=== PATIENT | female | born 1955 | race Caucasian/White ===

== ENCOUNTER → 2016-05-22 | Outpatient (CLI) | payer BC, OTHER ==
--- NOTE | 2016-05-22 09:04 | MA ---
Screening Digital Mammogram With Tomosynthesis and iCAD Indication: Routine screening. Personal history of right breast ductal carcinoma in situ. Technique: Standard digital CC projections were obtained. Digital breast tomosynthesis was performed in the MLO projection with reconstruction at 1.0 mm slice thickness. Composite MLO views were recons tructed. This examination was processed by the iCAD computer-aided detection system. Comparison: July 2015, May 2015, and April 2015 Breast density: Type B. Findings: CAD was reviewed. Four radiopaque markers are present in the outer right breast. Right anna st has asymmetric increased density and skin thickening from therapy. No new microcalcifications or m ass. The left mammograms are negative. Impression: Benign posttherapy mammograms. BI-RADS 2: Benign Finding. Recommendation: Routine screening is recommended in one year. [facility] will send a result letter to the patient. Negative mammography should not preclude additional workup of a clinically suspicious finding. The patient's information is entered into a reminder system with a target due date for her next mammo gram.
== END ==
LOC: FIMAGING 07:50
DX: Z12.31 Encounter for screening mammogram for malignant neoplasm of breast (principal); Z85.3 Personal history of malignant neoplasm of breast
CPT/HCPCS: G0202

== ENCOUNTER 2017-05-04 14:16 | Emergency (ER) | payer BC, OTHER ==
[2017-05-04 14:24] VITALS: RESP 18
--- NOTE | 2017-05-04 15:45 | EDPHY ---
H & P Stated Complaint: Flu Like Sx, Coughing HPI/ROS: HPI CHIEF COMPLAINT: Worsening cough with productive sputum, hemoptysis HISTORY OF PRESENT ILLNESS: This patient is 62-year-old female, history of breast cancer, hypertension she presents emergency room with cough, worsening over the past week. She was seen by her primary care doctor earlier in the week however had a normal x-ray was diagnosed with cold viral syndrome. She presents emergency room with worsening cough. She states she has been sick earlier in the month with influenza. Got over that and then developed this cough with hemoptysis. She denies any chest pain. Does admit to fever. She states now she has been coughing up sputum with blood in it. Denies pleuritic pain. Denies leg swelling or calf pain. Past Medical History: Breast cancer, hypertension Past Surgical History: Lumpectomy Social History: Denies drugs alcohol tobacco. Family History: Noncontributory ROS REVIEW OF SYSTEMS: A comprehensive 10 point review of systems is otherwise negative aside from elements mentioned in the history of present illness. Exam Constitutional appears well nontoxic in no acute distress triage nursing summary reviewed, vital signs reviewed, awake/alert. Eyes normal conjunctivae and sclera, EOMI, PERRLA. HENT normal inspection, atraumatic, moist mucus membranes, no epistaxis, neck supple/ no meningismus, no raccoon eyes. Respiratory bronchitic sounding cough bilaterally, crackles on the left lung, clear on the right Cardiovascular rate normal, regular rhythm, no murmur, no edema, distal pulses normal. Gastrointestinal soft, non-tender, no rebound, no guarding, normal bowel sounds, no distension, no pulsatile mass. Genitourinary no CVA tenderness. Musculoskeletal no midline vertebral tenderness, full range of motion, no calf swelling, no tenderness of extremities, no meningismus, good pulses, neurovascularly intact. Skin pink, warm, & dry, no rash, skin atraumatic. Neurologic awake, alert and oriented x 3, AAOx3, moves all 4 extremities equally, motor intact, sensory intact, CN II-XII intact, normal cerebellar, normal vision, normal speech. Psychiatric normal mood/affect. Heme/Lymph/Immune no lymphadenopathy. Differential Diagnosis: Includes but is not limited to in a particular order, pneumonia, pneumothorax, CHF, viral syndrome, influenza, pulmonary embolism, bronchitis Medical Decision Making: Plan for this patient DuoNeb breathing treatment, chest x-ray two view, basic blood work, D-dimer, rule out PE will out pneumonia. Influenza. Re-evaluation: 172: Patient's workup reviewed. She is influenza a positive. Additionally her x-ray shows a possible small pneumonia. Here in the emergency room she has received blood cultures,, I have given her a g of Rocephin, azithromycin IV as well. Tamiflu as well. Blood work has been reviewed she is does not have a high leukocytosis. 1739: Re-examination at this time this patient is eager to go home. She does not want stay in the hospital I did offer her admission given she has a pneumonia on her x-ray and flu positive. The Pneumonia is probably viral. The patient is noted to be not hypoxic here, no elevated white blood cell count. She feels better after DuoNeb breathing treatment. Patient receive Rocephin as if her here in emergency room. Tamiflu. I discussed at length with the patient and at bedside strict return precautions they understand return emergency room if she develops worsening symptoms includes high fever, vomiting, shortness of breath worsening symptoms or worsening of condition. She understands. Of note here in the Source: Patient - Personal History Current Tetanus Diphtheria and Acellular Pertussis (TDAP): Yes - Medical/Surgical History Hx Asthma: No Hx Chronic Respiratory Disease: No Hx Diabetes: No Hx Cardiac Disease: No Hx Renal Disease: No Hx Cirrhosis: No Hx Alcoholism: No Hx HIV/AIDS: No Hx Splenectomy or Spleen Trauma: No Other PMH: breast cancer (remission), partial hysterectomy - Social History Smoking Status: Former smoker Constitutional: Initial Vital Signs Temperature (C) 37.5 C 05/04/17 14:21 Heart Rate 97 05/04/17 14:21 Respiratory Rate 18 05/04/17 14:21 Blood Pressure 126/87 H 05/04/17 14:21 O2 Sat (%) 95 05/04/17 14:21 O2 Delivery Mode Room Air Allergies/Adverse Reactions: ANESTETICS Allergy (Unknown, Uncoded 07/06/09 02:56) Home Medications: Medication Instructions Recorded AZITHROMYCIN [Z-PACK] 250 mg PO DAILY #6 tab 05/04/17 Albuterol [Proventil Inhaler HFA 1 - 2 puffs IH Q4H #1 mdi 05/04/17 (*)] Aspirin 05/04/17 Atorvastatin Calcium 05/04/17 Oseltamivir Phosphate [Tamiflu 75 75 mg PO BID #10 cap 05/04/17 mg (*)] predniSONE 60 mg PO DAILY #15 tab 05/04/17 Medical Decision Making - Diagnostics Imaging Results: Imaging Impressions Chest X-Ray 05/04/17 15:45 Impression: 1. Prominence of perihilar interstitial markings and peribronchial cuffing. Findings are nonspecific but can be seen with bronchitis, reactive airway disease, or viral process. 2. There may be superimposed pneumonitis or early pneumonia right mid lung laterally. Consider follow-up chest x-ray after treatment to confirm resolution in this patient with history of breast cancer. - Data Points Laboratory Results: Laboratory Results 05/04/17 16:10 05/04/17 16:10 05/04/17 05/04/17 05/04/17 16:10 16:10 16:10 WBC 5.88 10^3/uL 10^3/uL (3.80-9.50) RBC 5.25 10^6/uL 10^6/uL (4.18-5.33) Hgb 14.5 g/dL g/dL (12.6-16.3) Hct 41.4 % % (38.0-47.0) MCV 78.9 fL L fL (81.5-99.8) MCH 27.6 pg L pg (27.9-34.1) MCHC 35.0 g/dL g/dL (32.4-36.7) RDW 14.6 % % (11.5-15.2) Plt Count 216 10^3/uL 10^3/uL (150-400) MPV 10.4 fL fL (8.7-11.7) Neut % (Auto) 53.4 % % (39.3-74.2) Lymph % (Auto) 29.9 % % (15.0-45.0) Gooding % (Auto) 14.5 % H % (4.5-13.0) Eos % (Auto) 1.7 % % (0.6-7.6) Baso % (Auto) 0.3 % % (0.3-1.7) Nucleat RBC Rel Count 0.0 % % (0.0-0.2) Absolute Neuts (auto) 3.14 10^3/uL 10^3/uL (1.70-6.50) Absolute Lymphs (auto) 1.76 10^3/uL 10^3/uL (1.00-3.00) Absolute Monos (auto) 0.85 10^3/uL H 10^3/uL (0.30-0.80) Absolute Eos (auto) 0.10 10^3/uL 10^3/uL (0.03-0.40) Absolute Basos (auto) 0.02 10^3/uL 10^3/uL (0.02-0.10) Absolute Nucleated RBC 0.00 10^3/uL 10^3/uL (0-0.01) Immature Gran % 0.2 % % (0.0-1.1) Immature Gran # 0.01 10^3/uL 10^3/uL (0.00-0.10) PT 13.0 SEC SEC (12.0-15.0) INR 0.96 (0.83-1.16) APTT 29.0 SEC SEC (23.0-38.0) D-Dimer 0.50 ug/mLFEU ug/mLFEU (0.00-0.50) Sodium 142 mEq/L mEq/L (135-145) Potassium 3.2 mEq/L L mEq/L (3.5-5.2) Chloride 102 mEq/L mEq/L (97-110) Carbon Dioxide 25 mEq/l mEq/l (22-31) Anion Gap 15 mEq/L mEq/L (8-16) BUN 10 mg/dL mg/dL (7-23) Creatinine 0.6 mg/dL mg/dL (0.6-1.0) Estimated GFR > 60 Glucose 98 mg/dL mg/dL (70-100) Calcium 10.2 mg/dL mg/dL (8.5-10.4) Magnesium 2.0 mg/dL mg/dL (1.6-2.3) Total Bilirubin 0.8 mg/dL mg/dL (0.1-1.4) Conjugated Bilirubin 0.4 mg/dL mg/dL (0.0-0.5) Unconjugated Bilirubin 0.4 mg/dL mg/dL (0.0-1.1) AST 32 IU/L IU/L (14-46) ALT 73 IU/L H IU/L (9-52) Alkaline Phosphatase 132 IU/L H IU/L (38-126) Creatine Kinase 37 IU/L IU/L (0-156) CK-MB (CK-2) Fraction < 0.22 ng/mL ng/mL (0.00-3.19) Troponin I < 0.012 ng/mL ng/mL (0.000-0.034) Total Protein 7.5 g/dL g/dL (6.3-8.2) Albumin 4.1 g/dL g/dL (3.5-5.0) Nasal Influenza A PCR Nasal Influenza B PCR 05/04/17 15:55 WBC RBC Hgb Hct MCV MCH MCHC RDW Plt Count MPV Neut % (Auto) Lymph % (Auto) Gooding % (Auto) Eos % (Auto) Baso % (Auto) Nucleat RBC Rel Count Absolute Neuts (auto) Absolute Lymphs (auto) Absolute Monos (auto) Absolute Eos (auto) Absolute Basos (auto) Absolute Nucleated RBC Immature Gran % Immature Gran # PT INR APTT D-Dimer Sodium Potassium Chloride Carbon Dioxide Anion Gap BUN Creatinine Estimated GFR Glucose Calcium Magnesium Total Bilirubin Conjugated Bilirubin Unconjugated Bilirubin AST ALT Alkaline Phosphatase Creatine Kinase CK-MB (CK-2) Fraction Troponin I Total Protein Albumin Nasal Influenza A PCR FLU A DETECTED H (NEGATIVE) Nasal Influenza B PCR NEGATIVE FOR FLU B (NEGATIVE) Medications Given: Discontinued Medications Acetaminophen (Tylenol) 1,000 mg PO EDNOW ONE Stop: 05/04/17 16:37 Last Admin: 05/04/17 16:40 Dose: 1,000 mg Albuterol/Ipratropium (Duoneb) 3 ml IH EDNOW ONE Stop: 05/04/17 15:58 Last Admin: 05/04/17 16:32 Dose: 3 ml Sodium Chloride (Ns) 1,000 mls @ 0 mls/hr IV EDNOW ONE; Wide Open PRN Reason: Protocol Stop: 05/04/17 15:57 Last Admin: 05/04/17 16:33 Dose: 1,000 mls Departure - Departure Disposition: Home, Routine, Self-Care Clinical Impression: Influenza A, Bronchitis Pneumonia Qualifiers: Pneumonia type: due to unspecified organism Laterality: unspecified laterality Lung location: unspecified part of lung Qualified Code(s): J18.9 - Pneumonia, unspecified organism Condition: Good Instructions: Viral Pneumonia (ED), Influenza (ED), Acute Bronchitis (ED), Wheezing (ED) Additional Instructions: 1. Drink lots of fluids stay well-hydrated. 2. Alternate Tylenol Motrin for fever and pain control. 3. Tamiflu as prescribed. 4. Albuterol 2 puffs every 4 hr for cough or wheezing. 5. The prednisone as prescribed. 6. Azithromycin as prescribed. 7. Close follow-up with her primary care doctor. 8. Return emergency room if you have worsening shortness of breath, fever, vomiting or do not feel well. Referrals: Ivet Garcia MD [Primary Care Provider] - As per Instructions Prescriptions: Albuterol [Proventil Inhaler HFA (*)] 1 - 2 puffs IH Q4H #1 mdi AZITHROMYCIN [Z-PACK] 250 mg PO DAILY #6 tab Oseltamivir Phosphate [Tamiflu 75 mg (*)] 75 mg PO BID #10 cap predniSONE 60 mg PO DAILY #15 tab
[2017-05-04] MEDS ORDERED: NS 1,000 ML IV ONE (15:56)
[2017-05-04] MEDS ORDERED: IPRATROPIUM/ALBUTEROL 3 ML DEYVIAL IH ONE (15:57)
[2017-05-04 16:19] LABS: PLATELET COUNT 216 10^3/uL (150-400)
[2017-05-04] MEDS ORDERED: ACETAMINOPHEN 500 MG TAB PO ONE (16:36)
[2017-05-04 16:41] LABS: INR 0.96 (0.83-1.16)
[2017-05-04 16:45] LABS: CREATINE KINASE 37 IU/L (0-156)
[2017-05-04] MEDS ORDERED: AZITHROMYCIN IV 500 MG in D5W 250 ML IV ONE (17:19)
[2017-05-04] MEDS ORDERED: cefTRIAXone 1 GM in STERILE WATER INJ 10 ML IV ONE (17:19)
[2017-05-04] MEDS ORDERED: OSELTAMIVIR PHOSPHATE 75 MG CAP PO ONE (17:29)
[2017-05-04 19:28] VITALS: BP 128/82; PULSE 93; TEMP 98.2; O2SAT 93
== END 2017-05-04 19:27 | disposition home or self-care (01) ==
DX: J20.9 Acute bronchitis, unspecified (principal); J10.00 Influenza due to other identified influenza virus with unspecified type of pneumonia; I10 Essential (primary) hypertension; E86.9 Volume depletion, unspecified; Z79.82 Long term (current) use of aspirin; Z85.3 Personal history of malignant neoplasm of breast; Z87.891 Personal history of nicotine dependence
CPT/HCPCS: 96365; J0456; J0696

== ENCOUNTER → 2017-05-25 | Outpatient (CLI) | payer BC, OTHER | LOC: FIMAGING 15:34 | PROVIDERS: ATTEND Internal Medicine Hematology & Oncology | DX: Z12.31 Encounter for screening mammogram for malignant neoplasm of breast (principal); Z85.3 Personal history of malignant neoplasm of breast ==

== ENCOUNTER 2017-08-16 21:32 | Emergency (ER) | payer BC ==
--- NOTE | 2017-08-16 21:54 | EDPHY ---
H & P Stated Complaint: dog bite to left hand Time Seen by Provider: 08/16/17 21:53 HPI/ROS: HPI: This is a 62-year-old female who presents with Chief Complaint: Dog bite to left hand Location: Left hand Quality: Dog bite Duration: Prior to arrival Signs and Symptoms: + bleeding, no radiation, no numbness, no weakness, no tingling, no incontinence, no decreased range of motion, + swelling, + pain, no fever Timing: Acute Severity: Moderate Context: Patient is right-hand dominant, presents with complaints of her 4-year -old mixed mutt dog biting her in the left hand. Dog weights 70 pounds. She reports that there is 5 puncture site from his teeth. 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 He is up-to-date on his vaccinations including rabies. Patient reports that there is pain in her left hand that is worsened with movement and touching the area. Denies paresthesias/weakness. Reports tetanus is current. Modifying Factors: None Comment: ROS: see HPI Constitutional: No fever, no chills, no weight loss Eyes: No blurred vision Respiratory: No shortness of breath, no cough Cardiovascular: No chest pain Gastrointestinal: No nausea, no vomiting no diarrhea Genitourinary: No dysuria Extremities: No myalgias Neurologic: No weakness, no numbness Skin: No rashes Hematologic: No bruising, no bleeding MEDICAL/SURGICAL/SOCIAL HISTORY: Medical/Surgical history: breast cancer (remission)/ surgery, partial hysterectomy, tonsillectomy and adenoidectomy, eye surgery, right wrist fx repair Social history: Employed CONSTITUTIONAL: Extremely polite and cooperative elderly white female, awake and alert, no obvious distress HEENT: Atraumatic and normocephalic. Cardiovascular: Normal S1/S2, regular rate, regular rhythm, without murmur rub or gallop. PULMONARY/CHEST: Symmetrical and nontender. no crepitus. Clear to auscultation bilaterally. Good air movement. No accessory muscle usage. ABDOMEN: Soft, nondistended, nontender, no ecchymosis. EXTREMITIES: 2/2 pulses, strength 5/5, left hand; dried blood noted; 5 small pinpoint puncture sites noted between 1st and 2nd webspace x 2, second metacarpal x 3. No scaphoid tenderness. DIP/PIP/MCP flexion/extension intact with good light touch sensation. no deformities, no clubbing, no cyanosis or edema. NEUROLOGICAL: no focal neuro deficits. GCS 15. Light touch sensation intact. SKIN: Warm and dry, no erythema. no rash. Good capillary refill. Source: Patient Exam Limitations: No limitations - Personal History Current Tetanus/Diphtheria Vaccine: Yes Current Tetanus Diphtheria and Acellular Pertussis (TDAP): Yes - Medical/Surgical History Hx Asthma: No Hx Chronic Respiratory Disease: No Hx Diabetes: No Hx Cardiac Disease: No Hx Renal Disease: No Hx Cirrhosis: No Hx Alcoholism: No Hx HIV/AIDS: No Hx Splenectomy or Spleen Trauma: No Other PMH: breast cancer (remission)/ sugery, partial hysterectomy, tonsilectomy and addnoidectomy, eye surgery, right wrist fx repair - Social History Smoking Status: Former smoker Constitutional: Initial Vital Signs Temperature (C) 37.0 C 08/16/17 21:37 Heart Rate 85 08/16/17 21:37 Respiratory Rate 18 08/16/17 21:37 Blood Pressure 145/114 H 08/16/17 21:37 O2 Sat (%) 96 08/16/17 21:37 O2 Delivery Mode Room Air Allergies/Adverse Reactions: ANESTETICS Allergy (Unknown, Uncoded 08/16/17 21:40) Home Medications: Medication Instructions Recorded Aspirin 05/04/17 Atorvastatin Calcium 05/04/17 Amoxicillin/Clavulanate Pot 875 mg PO BID #14 tab 08/16/17 [Augmentin 875 MG TAB (*)] oxyCODONE/APAP 5/325 [Percocet 1 - 2 tab PO Q4H PRN #10 tab 08/16/17 5/325 (*)] Medical Decision Making - Diagnostics Imaging Results: Imaging Impressions Hand X-Ray 08/16/17 22:41 Impression: Extensive soft tissue swelling, with subcutaneous air over the dorsum of the hand. ED Course/Re-evaluation: Let topical applied and given Percocet/Augmentin upon arrival. Tetanus booster given. Rabies immunoglobulin not indicated. 2211: LET topical applied 2217: police and animal control at bedside. Left hand x-ray ordered per patient request; no fractures dislocation appreciated. moderate soft tissue swelling noted between the 1st and 2nd digit. Clean sterile dressing applied and bulky dressing to reduce movement and provide immobilization. No signs of neurovascular compromise/tenting of skin/compartment syndrome/ extremities and joints examined above and below area of concern and are neurovascularly intact. wound check in 2-3 days. This patient was seen under the supervision of my secondary supervising physician. I evaluated care for this patient independently. Discussed this patient with Dr. Mcgowan who did not see the patient. Differential Diagnosis: Differential diagnosis includes but is not limited to dog bite, tendon injury, nerve injury, cellulitis, tenosynovitis. - Data Points Medications Given: Discontinued Medications Amoxicillin/Clavulanate Potassium (Augmentin 875mg) 875 mg PO EDNOW ONE PRN Reason: Protocol Stop: 08/16/17 21:57 Last Admin: 08/16/17 22:11 Dose: 875 mg Oxycodone/Acetaminophen (Percocet 5/325) 1 tab PO EDNOW ONE Stop: 08/16/17 22:01 Last Admin: 08/16/17 22:11 Dose: 1 tab Tetracaine/Epinephrine/Lidocaine (Let Gel Topical) 1 ea TP EDNOW ONE Stop: 08/16/17 21:57 Last Admin: 08/16/17 22:08 Dose: 1 ea Departure - Departure Disposition: Home, Routine, Self-Care Clinical Impression: Dog bite of left hand Qualifiers: Encounter type: initial encounter Qualified Code(s): S61.452A - Open bite of left hand, initial encounter Condition: Good Instructions: Animal Bite (ED) Additional Instructions: Keep the dressing dry and in place for 48 hours. After 48 hours, you may remove the dressing; wash the site daily with mild soap and water; then pat dry. Take Tylenol 650 mg every 4 hours and/or Ibuprofen 600 mg every 8 hours with food as needed for pain. Use Percocet every 6 hours as needed for severe/break through pain. Do not use Tylenol and Percocet concomitantly. Apply ice for 30 minutes at a time; 2-3 times per day for the next 1-2 days. Keep your left hand elevated as much as possible and restrict use for the next 48-72 hours. Take Augmentin twice daily for the next 7 days. The x-rays obtained in the emergency department today demonstrate no evidence of an obvious fracture. Sometimes fractures are not obvious on the initial set of x-rays performed in the ED. For this reason, you should have repeat x-rays performed in 7-10 days if you are having any pain exclude the possibility of an occult fracture. Wound Care Follow-Up: Wound evaluation and dressing change in 2-3 days if symptoms persist or worsen. There is a charge for this evaluation in the Emergency Department. Return to the ER immediately if you experience redness, red streaks, have fevers /chills, flu like symptoms, limited range of motion, or any other symptoms that concern you. Referrals: Ivet Garcia MD [Primary Care Provider] - As per Instructions Prescriptions: Amoxicillin/Clavulanate Pot [Augmentin 875 MG TAB (*)] 875 mg PO BID #14 tab oxyCODONE/APAP 5/325 [Percocet 5/325 (*)] 1 - 2 tab PO Q4H PRN #10 tab PRN Reason: Pain, Severe
[2017-08-16] MEDS ORDERED: AMOXICILLIN/CLAVULANATE POT 875/125 MG TAB PO ONE (21:56)
[2017-08-16] MEDS ORDERED: LET GEL TOPICAL 1 EA SYR TP ONE (21:56)
[2017-08-16] MEDS ORDERED: OXYCODONE/APAP 5/325 TAB PO ONE (22:00)
[2017-08-16 23:26] VITALS: BP 136/84
== END 2017-08-16 23:26 | disposition home or self-care (01) ==
DX: S61.452A Open bite of left hand, initial encounter (principal); Z79.82 Long term (current) use of aspirin; Z85.3 Personal history of malignant neoplasm of breast; Z87.891 Personal history of nicotine dependence; W54.0XXA Bitten by dog, initial encounter

== ENCOUNTER → 2018-05-24 | Outpatient (CLI) | payer BC | LOC: FIMAGING 15:31 | PROVIDERS: ATTEND Internal Medicine Hematology & Oncology | DX: Z12.31 Encounter for screening mammogram for malignant neoplasm of breast (principal); Z85.3 Personal history of malignant neoplasm of breast; Z80.3 Family history of malignant neoplasm of breast ==